=== PATIENT | female | born 1970 | race Caucasian/White ===

== ENCOUNTER → 2018-03-09 | Outpatient (CLI) | payer OTHER ==
[~2018-03-09] MED LIST: AMBIEN5 MG PO; ATIVAN1 MG PO; ESTRADIOL 1 MG T1 M1 PO; FLAGYL500 MG PO; ONDANSETRON HCL4 M2 PO; PHENERGAN 25 MG25 M1 PO; PROMS25 WY RECTAL; SIMVASTATIN20 MG PO; TRINTELLIX PO; XANAX1 MG PO
== END ==
LOC: M.RAD 16:19
DX: Z12.31 Encounter for screening mammogram for malignant neoplasm of breast (principal)